=== PATIENT | female | born 1980 | race Caucasian/White ===

== ENCOUNTER → 2017-07-12 | Outpatient (REF) ==
[2017-07-12 21:45] LABS: THYROID STIMULATING HORMONE 2.21 uIU/mL (0.465-4.680)
== END ==
LOC: ZLAB.WCH 20:42
PROVIDERS: Family Medicine
DX: Z01.89 Encounter for other specified special examinations (principal)

== ENCOUNTER → 2020-03-24 | Outpatient (CLI) | payer BC | LOC: MC.RAD 15:24 | DX: Z12.31 Encounter for screening mammogram for malignant neoplasm of breast (principal); Z90.13 Acquired absence of bilateral breasts and nipples ==

== ENCOUNTER → 2021-04-13 | Outpatient (CLI) | payer BC | LOC: MC.RAD 13:14 | DX: Z12.31 Encounter for screening mammogram for malignant neoplasm of breast (principal); Z98.890 Other specified postprocedural states ==

== ENCOUNTER → 2022-05-22 | Outpatient (CLI) | payer BC | LOC: MC.RAD 16:48 | DX: Z12.31 Encounter for screening mammogram for malignant neoplasm of breast (principal) ==

== ENCOUNTER → 2024-06-29 | Outpatient (CLI) | payer BC | LOC: MC.RAD 10:45 | DX: N63.15 Unspecified lump in the right breast, overlapping quadrants (principal); R22.31 Localized swelling, mass and lump, right upper limb; Z80.3 Family history of malignant neoplasm of breast ==